=== PATIENT | male | born 2000 | race African-American/Black ===

== ENCOUNTER 2023-03-09 19:16 | Emergency (ER) | payer OTHER, SELFPAY ==
[2023-03-09 19:37] VITALS: BP 140/82; PULSE 126; RESP 16; TEMP 37.2; O2SAT 99
--- NOTE | 2023-03-09 19:50 | ED.URI ---
HPI - URI/Sore Throat General Chief Complaint: Upper Respiratory Infection Stated Complaint: sore throat Time Seen by Provider: 03/09/23 19:51 History of Present Illness HPI Narrative: 22 y/o male presented for c/o sore throat x4 days. Rates pain 6/10, 10/10 with eating/swallowing. Denies associated n/v/d/f/c. Taking Tylenol or Advil for symptoms. Related Data Allergies Allergy/AdvReac Type Severity Reaction Status Date / Time No Known Allergies Allergy Verified 03/09/23 19:29 Review of Systems Review of Systems: CONSTITUTIONAL: Denies body aches, fever, chills, or sweats. EYES: Denies visual changes, redness, or discharge. ENT: Reports sore throat Denies rhinorrhea, congestion, or otalgia. CARDIOVASCULAR: Denies chest pain, palpitations, or edema. RESPIRATORY: Denies dyspnea. GASTROINTESTINAL: Denies abdominal pain, nausea, vomiting, or diarrhea. SKIN: Denies rash, itching, or wounds. MUSCULOSKELETAL: Denies back pain, joint pain, or myalgia. NEUROLOGIC: Denies headache [facility] Past Medical History Medical History (Updated 03/09/23 @ 20:00 by Magali Dennison APRN) No pertinent past medical history Surgical History Surgical History (Updated 03/09/23 @ 20:00 by Magali Dennison APRN) History of tonsillectomy Exam Narrative: GENERAL: well-appearing, no acute distress. EYES: conjunctivae clear ENT: Mucous membranes moist. TM pearly kamara with normal light reflex bilaterally; no tragal tenderness. Oropharynx erythematous without lesions. Tonsils absent No drooling, no hoarseness, no trismus, uvula midline. No tripod positioning, hot potato voice, or soft palate swelling. NECK: Supple. No lymphadenopathy CHEST: Clear to auscultation, breath sounds equal. No respiratory distress, speaks in full sentences. HEART: Regular rate and rhythm. No murmur heard. SKIN: Warm, dry, no rash. NEURO: Alert and oriented x3. Course Course Emergency Course: Patient is aware of diagnosis, understands and agrees to treatment plan. Anticipatory guidance given. Patient agrees to follow-up as directed and is aware of reasons to seek care at the emergency department. Portions of this record may have been created with voice recognition software Level of Care: Express Care Visit Vital Signs Vital signs: Vital Signs Temperature 98.9 F 03/09/23 19:37 Pulse Rate 126 H 03/09/23 19:37 Respiratory Rate 16 03/09/23 19:37 Blood Pressure 140/82 03/09/23 19:37 Pulse Oximetry 99 03/09/23 19:37 Oxygen Delivery Room Air 03/09/23 19:37 Temperature 98.9 F 03/09/23 19:37 Pulse Rate 126 H 03/09/23 19:37 Respiratory Rate 16 03/09/23 19:37 Blood Pressure 140/82 03/09/23 19:37 Pulse Oximetry 99 03/09/23 19:37 Oxygen Delivery Room Air 03/09/23 19:37 MDM - URI/Sore Throat MDM Narrative Medical decision making narrative: Neg strep result reviewed with pt. Advise supportive treatments. Patient is appropriate for outpatient treatment and follow-up. Differential Diagnosis Differential diagnosis: Likely upper respiratory infection, viral infection and pharyngitis Lab Data Labs: Strep Screen Presumptive Negative *(Reference Range: Negative)* Discharge Plan Discharge Clinical Impression: Pharyngitis Patient Disposition: Home, Self-Care Condition: Stable Instructions: Antibiotic Form, Pharyngitis (ED) Additional Instructions: Rapid strep swab was negative today You will be notified in a few days if the culture comes back positive for strep, and appropriate antibiotics will be called in at that time. if symptoms are due to a viral illness, it is not treated with antibiotics. Viral symptoms can be present for up to 10-14 days. Motrin and Tylenol every 8 hours as needed for pain/fever Soft foods, cool liquids, warm tea. Gargle with warm saltwater twice a day. Chloraseptic spray and throat lozenges. Res
== END 2023-03-09 19:58 | disposition home or self-care (01) ==
PROVIDERS: Emergency Provider Nurse Practitioner Family; PCP Pediatrics Adolescent Medicine
DX: J02.9 Acute pharyngitis, unspecified (principal)
CPT/HCPCS: 87081; 87880; 99213; G0463